=== PATIENT | female | born 1995 | race Caucasian/White ===

== ENCOUNTER 2025-04-19 09:50 | Outpatient (RCR) | payer OTHER, SELFPAY ==
--- OUTSIDE RECORDS SUMMARY | 2025-04-16 15:43 | XMS_ITS | Clinical Summary ---
Author Organization [facility] Address [facility] [place] [address] Care Team Providers Care Electrical Integrator Name Role Phone None, Provider MD Primary Care Provider Unavaila ble Allergies Active Allergy Reactions Criticality Noted Date Comments Dextromethorphan-Guaifenesin Hives 022 Medications busPIRone 7.5 MG tablet Take 7.5 mg by mouth 3 (three) times daily. 2 Active diclofenac sodium 1 % gelIndications: Right hand pain Apply 2 g topically 4 (four) times daily. 100 g 2 Active Active Problems Problem Noted Date Diagnosed Date ([facility]) 03/22/2021 Encounters Date Type Department Care Team Description 03/25/2025 2:07 PM CDT - 03/25/2025 11:59 PM CDT Hospital Encounter [facility] [address] [place] [address] Josephine Weldon MD Discharge Disposition: Home or Self Care (Routine Discharge) 03/25/2025 Orders Only [facility] [address] [place] [address] Josephine Weldon MD 03/17/2025 9:15 AM CDT - 03/17/2025 11:59 PM CDT Hospital Encounter [facility] [address] [place] [address] Josephine Weldon MD Discharge Disposition: Home or Self Care (Routine Discharge) 03/17/2025 Orders Only [facility] [address] [place] [address] Josephine Weldon MD 03/17/2025 Travel 03/15/2025 3:53 PM CDT - 03/15/2025 11:59 PM CDT Hospital Encounter [facility] [address] [place] [address] Sherry Ibrahim, LARON Discharge Disposition: Home or Self Care (Routine Discharge) 03/15/2025 10:50 AM CDT - 03/15/2025 11:57 AM CDT Emergency [facility] [address] [place] [address] Timo Smith MD Vaginal Bleeding Discharge Disposition: Home or Self Care (Routine Discharge) 03/15/2025 Orders Only [facility] [address] [place] [address] Sherry Ibrahim CNM 03/15/2025 Travel 01/21/2025 10:24 AM CDT - 01/21/2025 11:59 PM CDT Hospital Encounter [facility] [address] [place] [address] Timo Laws MD Discharge Disposition: Home or Self Care (Routine Discharge) 01/21/2025 Orders Only [facility] [address] [place] [address] Timo Laws MD 01/21/2025 Travel from Last 3 Months Social History Tobacco Use Types Packs/Day Years Used Date Smoking Tobacco: Former Cigarettes Smokeless Tobacco: Never Alcohol Use Standard Drinks/Week Comments Yes 0 (1 standard drink = 0.6 oz pur e alcohol) socially Comments No Sex and Gender Information Value Date Recorded Sex Assigned at Female 10/07/2024 2:31 PM CDT Legal Sex Female 7:59 AM CDT Gender Identity Not on file Sexual Orientation Not on file Last Filed Vital Signs Vital Sign Reading Time Taken Comments Blood Pressure 119/75 03/15/2025 10:57 AM CDT Pulse 76 03/15/2025 10:57 AM CDT Temperature 36.4 C (97.6 F) 03/15/2025 10:57 AM CDT Respiratory Rate 16 03/15/2025 10:57 AM CDT Oxygen Saturation 99% 03/15/2025 10:57 AM CDT Inhaled Oxygen Concentration - - Weight 61.2 kg (135 lb) 03/15/2025 10:57 AM CDT Height 160 cm (5' 3) 03/15/2025 10:57 AM CDT Body Mass Index 23.91 03/15/2025 10:57 AM CDT Plan of Treatment Health Maintenance Due Date Last Done Comments Annual Physical 2000 Cervical Cancer Screening Pap Smear (Age 21 to 29) Every 3 Years 11/12/2017 11/12/2014 Cervical Cancer Screening 11/12/2017 COVID-19 Vaccine ( season) 2025 DTaP, Tdap and Td Vaccines (8 - Td or Tdap) 07/29/2031 07/29/2021, 03/03/2012, 03/24/2003, Additional history exists Hepatitis B Vaccines Completed 10/21/1998, 1997, 1997, Additional history exists HPV Vaccines Completed 12/22/2013, 08/30, 03/03/2012 Meningococcal Vaccine Completed 03/11/2015, 014 Hepatitis C Completed 03/17/2024 Meningococcal B Vaccine Aged Out No l onger eligible based on patient's age to complete this topic Pneumococcal Vaccine: Pediatrics (0 to 5 Years) and At-Risk Patients (6 to 49 Years) Aged Out No longer eligible based on patient's age to complete this topic RSV Immunizations Under 20 Months Aged Out No longer eligible based on patient's age to complete this topic Procedures Procedure Name Priority Date/Time Associated Diagnosis Comments HC HCG QN Routine 03/25/2025 2:09 PM CDT Hemorrhage in early (HHS/HCC) HC HCG QN Routine 03/17/2025 9:20 AM CDT Hemorrhage in early (HHS/HCC) HC HCG QN Routine 03/15/2025 3:56 PM CDT Amenorrhea URINALYSIS AUTO DIP STAT 03/15/2025 1 1:02 AM CDT TEST URINE STAT 03/15/2025 11:02 AM CDT THYROID STIM HORMONE TSH Routine 01/21/2025 10:30 AM CDT Asthenia Dizziness and giddiness CBC W/DIFF AUTOMATED Routine 01/21/2025 10:30 AM CDT Asthenia Dizziness and giddiness BASIC METABOLIC PANEL Routine 01/21/2025 10:30 AM CDT Asthenia Dizziness and giddiness HEPATITIS C ANTIBODY Routine 03/17/2024 4:40 PM CDT Screening examination for STD (sexually transmitted disease) THINPREP IMAGING PAP REFLEX HPV MRNA E6/E7 Routine 11/12/2014 5:18 PM CDT from Last 3 Months or Most Recently Relevant to Health Maintenance Results * HCG QUANT (SERUM)-CHORIONIC GONADOTROPIN (03/25/2025 2:09 PM CDT) Only the most recent of3 resultswithin the time period is included. HCG QUANTITATIVE <1 0.0 - 6.0 MIU/ML 03/25/2025 3:21 PM CDT [facility] Comment: WEEKS OF REFERENCE RANGES NON- FEMALE 0-6 0.2 - 1 5 - 50 1 - 2 50 - 500 2 - 3 100 - 5000 3 - 4 500 - 10,000 4 - 5 1000 - 50,000 5 - 6 10,000 - 100,000 6 - 8 15,000 - 200,000 2 - 3 MONTHS 10,000 - 100,000 03/25/2025 2:09 PM CDT us Josephine Weldon MD LABORATORY Final Result [address] [place] [address], [place] * TEST URINE (03/15/2025 11:02 AM CDT) URINE HCG TEST NEGATIVE NEGATIVE 03/15/2025 11:36 AM CDT [facility] Comment: VERY DILUTE URINE SPECIMENS MAY NOT CONTAIN EMG TECHNICIAN LEVELS OF HCG. IF IS STILL SUSPECTED, A SERUM HCG TEST IS RECOMMENDED. URINE SPECIMEN FROM URETHRA / Unknown 03/15/2025 11:02 AM CDT us Timo Smith MD URINE ORDERABLES Final Result [facility] [address] [place] [address], * (ABNORMAL) URINALYSIS AUTO DIP (03/15/2025 11:02 AM CDT) COLOR (U) COLORLESS(A ) YELLOW 03/15/2025 11:33 AM CDT [facility] TRANSPARENCY CLEAR CLEAR 03/15/2025 11:33 AM CDT [facility] SPECIFIC GRAVITY (U) 1.004(L) 1.010 - 1.025 03/15/2025 11:33 AM CDT [facility] U PH 6.0 5.0 - 8.5 03/15/2025 11:33 AM CDT [facility] LEUKOCYTES (U) NEGATIVE NEGATIVE 03/15/2025 11:33 AM CDT [facility] NITRITES NEGATIVE NEGATIVE 03/15/2025 11:33 AM CDT [facility] PROTEIN RANDOM (U) NEGATIVE NEGATIVE 03/15/2025 11:33 AM CDT [facility] GLUCOSE (U) NORMAL(A) NEGATIVE 03/15/2025 11:33 AM CDT [facility] KETONES MG/DL (U) NEGATIVE NEGATIVE 03/15/2025 11:33 AM CDT [facility] UROBILINOGEN NORMAL 0.2 - 1.0 EU/DL 03/15/2025 11:33 AM CDT [facility] BILIRUBIN (U) NEGATIVE NEGATIVE 03/15/2025 11:33 AM CDT [facility] BLOOD (U) NEGATIVE NEGATIVE 03/15/2025 11:33 AM CDT [facility] URINE SPECIMEN OBTAINED BY CLEAN CATCH PROCEDURE / Unknown 03/15/2025 11:02 AM CDT us Timo Smith MD URINE ORDERABLES Final Result [facility] [address] [place] [address], * BASIC METABOLIC PANEL (01/21/2025 10:30 AM CDT) GLUCOSE 98 70 - 99 MG/DL 01/21/2025 10:47 AM CDT [facility] BUN 11 7 - 18 MG/DL 01/21/2025 10:47 AM CDT [facility] CREATININE S/P/B 0.81 0.50 - 1.20 MG/DL 01/21/2025 10:47 AM CDT [facility] SODIUM S/P/B 143 136 - 145 MMOL/L 01/21/2025 10:47 AM CDT [facility] POTASSIUM S/P/B 3.9 3.5 - 5.1 MMOL/L 01/21/2025 10:47 AM CDT [facility] CHLORIDE S/P/B 105 100 - 108 MMOL/L 01/21/2025 10:47 AM CDT [facility] CO2 28.2 21.0 - 32.0 MMOL/L 01/21/2025 10:47 AM CDT [facility] CALCIUM S/P/B 8.8 8.5 - 10.1 MG/DL 01/21/2025 10:47 AM CDT [facility] ANION GAP 9.8 5.0 - 15.0 MMOL/L 01/21/2025 10:47 AM CDT [facility] BUN CREATININE RATIO 13.6 6 - 26 01/21/2025 10:47 AM CDT [facility] GFR ESTIMATE >90 >90 ML/MIN/1.7 3 M2 01/21/2025 10:47 AM CDT [facility] Comment: NOTE: eGFR is not calculated for patients <18 years of age. This is an estimated GFR calculation using the new CKD EPI creatinine equation without race and so does not require a correction factor for race. This estimated GFR should not be used for calculating drug doses. 01/21/2025 10:3 0 AM CDT us Timo Laws MD LABORATORY Final Result [facility] [address] [place] [address], * (ABNORMAL) CBC W/DIFF AUTOMATED (01/21/2025 10:30 AM CDT) WBC 6.38 4.50 - 11.00 x10'3/uL 01/21/2025 10:40 AM CDT [facility] RBC 4.28 4.00 - 5.20 x10'6/uL 01/21/2025 10:40 AM CDT [facility] HGB 11.7(L) 12.0 - 16.0 G/DL 01/21/2025 10:40 AM CDT [facility] HCT 35.9(L) 38.0 - 48.0 % 01/21/2025 10:40 AM CDT [facility] MCV 83.9 80.0 - 100.0 FL 01/21/2025 10:40 AM CDT [facility] MCH 27.3 26.0 - 34.0 PG 01/21/2025 10:40 AM CDT [facility] MCHC 32.6 31.0 - 37.0 G/DL 01/21/2025 10:40 AM CDT [facility] RDW 13.9 11.6 - 14.8 % 01/21/2025 10:40 AM CDT [facility] PLT 186 130 - 400 x10'3/uL 01/21/2025 10:40 AM CDT [facility] MPV 9.8 7.0 - 12.0 FL 01/21/2025 10:40 AM CDT [facility] CBC COMMENT AUTOMATED RBC MORPHOLOGY AND PLATELET EVALUATION NORMAL 01/21/2025 10:40 AM CDT [facility] NEUTROPHILS % 74.0 40.0 - 74.0 % 01/21/2025 10:40 AM CDT [facility] LYMPHOCYTES % 15.0 14.0 - 46.0 % 01/21/2025 10:40 AM CDT [facility] MONOCYTES % 9.2 4.0 - 13.0 % 01/21/2025 10:40 AM CDT [facility] EOSINOPHILS 1.3 0.0 - 7.0 % 01/21/2025 10:40 AM CDT [facility] BASOPHILS 0.2 0.0 - 3.0 % 01/21/2025 10:40 AM CDT [facility] IMMATURE GRANS % 0.3 0.0 - 0.43 % 01/21/2025 10:40 AM CDT [facility] NRBC % 0.0 % 01/21/2025 10:40 AM CDT [facility] ABS. NEUTROPHILS TOTAL 4.72 1.69 - 7.81 x10'3/uL 01/21/2025 10:40 AM CDT [facility] ABS. LYMPHOCYTES 0.96 0.21 - 5.42 x10'3/uL 01/21/2025 10:40 AM CDT [facility] ABS. MONOCYTES 0.59 0.04 - 1.37 x10'3/uL 01/21/2025 10:40 AM CDT [facility] ABS. EOSINOPHILS 0.08 0.00 - 0.68 x10'3/uL 01/21/2025 10:40 AM CDT [facility] ABS. BASOPHILS 0.01 0.00 - 0.08 x10'3/uL 01/21/2025 10:40 AM CDT [facility] ABS. IMMATURE GRANULOCYTES 0.02 0.00 - 0.06 x10'3/uL 01/21/2025 10:40 AM CDT [facility] ABS. NUCLEATED RBC'S 0.00 0.00 - 0.01 x10'3/uL 01/21/2025 10:40 AM CDT [facility] 01/21/2025 10:3 0 AM CDT us Timo Laws MD LABORATORY Final Result [facility] [address] [place] [address], * THYROID STIM HORMONE TSH (01/21/2025 10:30 AM CDT) Pathologist [facility] TSH 2.000 0.358 - 3.74 uIU/ML 01/21/2025 1:40 PM CDT [facility] Comment: HIGH DOSES OF BIOTIN MAY INTERFERE WITH THIS TEST RESULT. CORRELATION TO CLINICAL HISTORY AND PRESENTATION RECOMMENDED. 01/21/2025 10:3 0 AM CDT us Timo Laws MD LABORATORY Final Result [facility] [address] [place] [address], * HEPATITIS C ANTIBODY (03/17/2024 4:40 PM CDT) Pathologist [facility] HEPATITIS C AB NON-REACTI VE NON-REACTI VE 03/17/2024 8:48 PM CDT [facility] 03/17/2024 4:40 PM CDT Nona Rivera LINE OUT MAN LABORATORY Final Result [facility] [address] [place] [address], * THINPREP IMAGING PAP REFLEX HPV MRNA E6/E7 (11/12/2014 5:18 PM CDT) HPV MRNA E6/E7 Not Detected Not Detected [facility] TO EP[facility] CONVERSION Comment: This test was performed using the APTIMA HPV Assay ([employer] This assay detects E6/E7 viral messenger RNA (mRNA) from 14 high-risk HPV types (16,18,31,33,35,39,45,51,52,56,58,59,66,68). THIS TEST WAS PERFORMED AT [facility] [address] [place] [address] 11/12/2014 5:18 PM CDT 11/12/2014 5:18 PM CDT Narrative [facility] TO [facility] CONVERSION - 12/08/2014 10:32 AM CDT This lab was migrated from [facility] and may be missing annotations or result text, please check the Media tab for the most complete results. Citlali LARRY PATHOLOGY/CYTOLOGY ORDERA BLES Final Result [facility] CONVERSION from Last 3 Months or Most Recently Relevant to Health Maintenance Insurance [place] Advance Directives * Full Code (Latest Code Status on File) Date Activated Date Inactivated Comments 03/22/2021 12:38 AM 03/22/2021 5:01 PM * Full Code Date Activated Date Inactivated Comments 03/21/2021 4:12 AM 03/21/2021 8:11 AM * Full Code Date Activated Date Inactivated Comments 03/08/2021 12:57 PM 03/08/2021 4:09 PM Care Teams Electrical Integrator Relationship Specialty Start Date End Date None, Provider, PCP - General 06/06/20
--- OUTSIDE RECORDS SUMMARY | 2025-04-16 15:43 | XMS_ITS | Clinical Summary ---
Author Organization [facility] Address [address] [place] [address] Care Team Providers Care Publicity Person Name Role Phone Unavailable Primary Care Provider Unavailabl e Source Comments [facility],non-owned Affiliates and Associated Physician Practices is amultiple site organization consisting of ambulatory clinics and hospital sitesin [place], [place], [place] and [place]. This disclosure is being madepursuant to the Care Everywhere program and may not contain all information available regarding this patient. Last updated 18.[employer] Allergies No known active allergies Medications * Be aware that medications may not be up to date on this document. Alwaysverify current medications with the patient. Vit-Fe Fumarate-FA ( VITAMIN) 28-0.8 MG tablet Take 1 tablet by mouth once daily Active Active Problems Problem Noted Date Diagnosed Date Abnormal ultrasound 11/14/2020 Overview (11/14/2020): Cleft lip / ? Palate on outside scan from 11/05/20. Resolved Problems Problem Noted Date Diagnosed Date Resolved Date Depression screening-Initial 01/02/2021 01/02/2021 03/27/2021 Overview (01/02/2021): 01/02/2021 Ham Cardenas was screened for depression using the [place] Depression Scale (EPDS) at her [facility] initial evaluation on 01/02/2021. Her initial score at baseline was 0. Based off of her score of 0, Ham does not warrant follow up. Patient will continue to be screened throughout , at intervals no closer than two weeks, for continued surveillance and early identification of depression until delivery. Patient reports mental health history. Diagnoses include anxiety. [facility]- cleft lip and king salmon te affecting management of mother in [place] , antepartum 11/21/2020 03/27/2021 Overview (03/20/2021): Images from the original note were not included. [facility] PATIENT--PLEASE CALL [phone] (ex 2) IF TRIAGED OR ADMITTED Care Provider: Dr. Weldon ([facility] Care [place] consultants involved: Nurse Coordinator-Gerhard Cosme/Phil; MFM-Dr. Flowers; Pediatric Cardiology-Dr. Haley; Cleft Team Nurse-Gerhard Medellin Diagnosis: Unilateral Cleft Lip and Palate Normal echocardiogram on 01/02/2021 Planned surveillance: Continue routine OB care; Released from [facility] after initial visit on 01/02/2021 Delivery location: [place], [place] Delivery mode: No contraindication to vaginal delivery Desired Delivery [place]: No indication for delivery prior to 39 weeks follow up: Family will call to schedule a visit with the Cleft Team ([phone]) after the baby is born. Importer Or Exporter: Dr. Jacque Moncada (assistant professor surgical technology letter sent 03/17/2021) Autopsy indicated: Genetics note: Low risk NIPT Plant Tour Guide Concerns: 01/02/2021-Patient with history with anxiety- no medications at this time Care plan based on evaluation and is subject to change based on assessment. See Images or Cardiac under Chart Review for US/ ECHO/ MRI reports. Social History Tobacco Use Types Packs/Day Years Used Date Smoking Tobacco: Former Cigarettes 0 07/29/2012 - 07/29/2017 Smokeless Tobacco: Never Alcohol Use Standard Drinks/Week Comments Not Currently 0 (1 standard drink = 0.6 oz pur e alcohol) Comments No Sex and Gender Information Value Date Recorded Sex Assigned at Not on file Legal Sex Female 2:08 PM CDT Gender Identity Not on file Sexual Orientation Not on file Last Filed Vital Signs Vital Sign Reading Time Taken Comments Blood Pressure 108/72 01/02/2021 2:00 PM CDT Pulse 93 01/02/2021 2:00 PM CDT Temperature - - Respiratory Rate - - Oxygen Saturation - - Inhaled Oxygen Concentration - - Weight 76 kg (167 lb 8.8 oz) 01/02/2021 2:00 PM CDT Height - - Body Mass Index - - Plan of Treatment Health Maintenance Due Date Last Done Comments HEPATITIS C SCREENING 07/22/2015 DTAP/TDAP/TD VACCINES (1 - Tdap) 2016 HEPATITIS B VACCINE (1 of 3 - 19+ 3-dose series) 2016 HPV VACCINE (1 - 3-dose SCDM series) 2024 DEPRESSION SCREENING 07/29/2024 COVID-19 VACCINE (1 - 2023-2 5 season) 2025 INFLUENZA VACCINE (#1) 2025 ZOSTER VACCINE (1 of 2) 2047 HIV SCREENING Completed 01/09/2021 HIB VACCINE Aged Out No longer eligi ble based on patient's age to complete this topic MENINGOCOCCAL (Group B) VACC INE SHARED DECISION-MAKING Aged Out No longer eligibl e based on patient's age to complete this topic MENINGOCOCCAL GROUPS A/C/Y/W VACCINE Aged Out No longer eligible b ased on patient's age to complete this topic PNEUMOCOCCAL VACCINE Aged Out No long er eligible based on patient's age to complete this topic Insurance MEDICAID - OUT OF STATE
[2025-04-16 16:57] LABS: Beta HCG Quantitative 233.83 mIU/ML
== END 2025-07-15 23:59 | disposition home or self-care (01) ==
LOC: ANHLAB 09:50
PROVIDERS: Visit Provider Obstetrics & Gynecology
DX: Z32.01 Encounter for pregnancy test, result positive (principal)
CPT/HCPCS: 36415; 84702